=== PATIENT | male | born 1990 | race Caucasian/White ===

== ENCOUNTER 2017-01-19 12:15 | Emergency (ER) | payer OTHER ==
[2017-01-19 12:24] VITALS: TEMP 98.1
--- NOTE | 2017-01-19 13:11 | RAD ---
PROCEDURE: Right Index finger radiographs. HISTORY: nail bed injury r/o tuft fx COMPARISON: None available. FINDINGS: RIGHT INDEX FINGER: Oblique mildly displaced fracture of the distal 2nd phalanx. Remainder of the right hand (as seen on the AP view) grossly intact. JOINTS: No dislocation. SOFT TISSUES: Soft tissue swelling. No evidence of radiopaque foreign body. OTHER FINDINGS: None. IMPRESSION: Oblique mildly displaced fracture of the distal 2nd phalanx with associated soft tissue swelling.
[2017-01-19] MEDS ORDERED: Lidocaine 2% Inj (20ml) INFIL ONE (13:40)
[2017-01-19] MEDS ORDERED: Lidocaine 2% Inj (20ml) ONE (13:45)
--- NOTE | 2017-01-19 14:14 | C.PDOC ---
History Of Present Illness 26 y/o male presents to ED with complaints of pain to 2nd right digit. Patient reports door slammed to finger 1 hr [employer] and sustained laceration to nail prompting visit to ED. Patient denies numbness, weakness or any other complaints at this time. Time Seen by Provider: 01/19/17 12:27 Chief Complaint (Nursing): Abnormal Skin Integrity History Per: Patient History/Exam Limitations: no limitations Onset/Duration Of Symptoms: Hrs Current Symptoms Are (Timing): Still Present Location Of Injury: Right: Hand Quality Of Symptoms: Painful Past Medical History Reviewed: Historical Data, Nursing Documentation, Vital Signs Vital Signs: Last Vital Signs Temp 98.1 F 01/19/17 12:20 Pulse 66 01/19/17 15:07 Resp 16 01/19/17 15:07 BP 123/78 01/19/17 15:07 Pulse Ox 99 01/20/17 21:47 Family History: States: No Known Family Hx - Social History Hx Alcohol Use: No Hx Substance Use: No Review Of Systems Except As Marked, All Systems Reviewed And Found Negative. Gastrointestinal: Negative for: Nausea, Vomiting Musculoskeletal: Positive for: Hand Pain Skin: Negative for: Rash Neurological: Negative for: Weakness, Numbness Physical Exam - Physical Exam Appears: Non-toxic, No Acute Distress Skin: Normal Color, Warm, Dry, No Rash Head: Atraumatic, Normacephalic Eye(s): bilateral: Normal Inspection Oral Mucosa: Moist Extremity: Capillary Refill (<2 seconds), No Deformity, Other (Partial nail avulsion on right 2nd fingernail and volar aspect of finger with 1cm laceration) Extremity: Bilateral: Normal Color And Temperature Pulses: Left Radial: Normal, Right Radial: Normal Neurological/Psych: Oriented x3, Normal Speech, Normal Motor, Normal Sensation ED Course And Treatment O2 Sat by Pulse Oximetry: 99 (RA) Pulse Ox Interpretation: Normal Laceration - Laceration Repair Nail avulsion Wound Length (In cm): 1 Description Of Wound: Irregular Wound Cleansed With: Betadine, Sterile Saline Wound Examination: Irrigated With Saline, No FB With Wound Exploration Wound Closure: Steri Strips, Skin Glue (The nail was placed back in place and glued and steri strip applied) Wound Complexity: Simple volar aspect of 2nd digit Wound Length (In cm): 1 Description Of Wound: Linear Wound Cleansed With: Betadine Anesthesia: Lidocaine 2% (digital block was performed by ERMA Roblero using 2.5cc of lidocaine) Wound Examination: Irrigated With Saline, No FB With Wound Exploration, No Tendon Injury With Wound Exploration Wound Closure: Skin Glue, Suture (two) Suture Technique And Material Used: Nylon (4-0) Wound Complexity: Simple Medical Decision Making Medical Decision Making: The wound was cleansed with pressurized sterile saline and betadine. Sterile dressing and Finger splint was applied by me after wound repair. Disposition - Disposition Referrals: Mandy Stein MD [Staff Provider] - Disposition: HOME/ ROUTINE Disposition Time: 14:51 Condition: GOOD Additional Instructions: KEEP THE FINGER CLEAN AND DRY. DO NOT WET IT. FOLLOW UP WITH THE HAND DOCTOR WITHIN 1-2 DAYS. Prescriptions: Cephalexin [cephalexin] 500 mg PO TID #30 cap Instructions: Finger Fracture (ED), Nail Avulsion (ED) Forms: [employer] (Kosovan) - Clinical Impression Clinical Impression: Finger fracture, Finger laceration, Avulsion fracture - PA / [employer]ACH[employer] / Resident Statement / has reviewed & agrees with the documentation as recorded. - Scribe Statement The provider has reviewed the documentation as recorded by the Maryibkailee Pace All medical record entries made by the Maryibkailee were at my direction and personally dictated by me. I have reviewed the chart and agree that the record accurately reflects my personal performance of the history, physical exam, medical decision making, and the department course for this patient. I have also personally directed, reviewed, and agree with the discharge instructions and disposition.
[2017-01-19 15:07] VITALS: BP 123/78; PULSE 66; RESP 16
[2017-01-20 21:48] VITALS: O2SAT 99
== END 2017-01-19 15:06 | disposition home or self-care (01) ==
LOC: C.ER 12:15
DX: S61.310A Laceration without foreign body of right index finger with damage to nail, initial encounter (principal); S62.630A Displaced fracture of distal phalanx of right index finger, initial encounter for closed fracture; W22.8XXA Striking against or struck by other objects, initial encounter